=== PATIENT | female | born 1945 | race Asian ===

== ENCOUNTER → 2016-06-18 | Outpatient (CLI) | payer OTHER, MEDICAID | LOC: BHCLAF 09:15 | PROVIDERS: ATTEND Internal Medicine Cardiovascular Disease | DX: I25.10 Atherosclerotic heart disease of native coronary artery without angina pectoris (principal); R07.9 Chest pain, unspecified | CPT/HCPCS: 93005-PO ==

== ENCOUNTER → 2016-06-24 | Outpatient (CLI) | payer OTHER, MEDICAID | LOC: BHFA 14:00 | PROVIDERS: ATTEND Internal Medicine Cardiovascular Disease | DX: R07.9 Chest pain, unspecified (principal); I25.10 Atherosclerotic heart disease of native coronary artery without angina pectoris | CPT/HCPCS: 78452; 93017; A9500; J2785 ==

== ENCOUNTER → 2017-09-28 | Outpatient (CLI) | payer OTHER, MEDICAID | LOC: BHCLAF 10:30 | PROVIDERS: ATTEND Internal Medicine Cardiovascular Disease | DX: I25.10 Atherosclerotic heart disease of native coronary artery without angina pectoris (principal); I10 Essential (primary) hypertension; E78.5 Hyperlipidemia, unspecified | CPT/HCPCS: 82607-90; 93005-PO ==

== ENCOUNTER → 2017-09-29 | Outpatient (CLI) | payer OTHER, MEDICAID | LOC: BMCIMAGING 13:47 | PROVIDERS: ATTEND Orthopaedic Surgery | DX: M25.551 Pain in right hip (principal); M25.552 Pain in left hip ==

== ENCOUNTER → 2018-10-04 | Outpatient (CLI) | payer OTHER, MEDICAID | LOC: FIMAGING 15:33 ==